=== PATIENT | female | born 1945 | race Caucasian/White ===

== ENCOUNTER 2017-05-01 11:17 | Outpatient (CLI) | payer OTHER, MEDICARE ==
--- NOTE | 2017-05-01 14:20 | PRG ---
DATE OF SERVICE: 05/01/2017 HISTORY: Ms. Diane Lancaster is a very pleasant 72-year-old who presents [facility] for caesar luation of bilateral lower extremity ulceration. The patient has a large ulceration of the right lo wer leg and another larger ulceration of the left lower leg. The patient previously stated that the ulcerations had been present for approximately 2 years. The patient stated that she had undergone bilateral venous ablation in [place] by Dr. Hinojosa. The patient stated that she had undergone ablation twice on the right and twice on the left leg. The patient stated that she had been performing dres sing changes 3 times per day in conjunction with the use of [place] wraps when she initially presente d to the [facility]. Presently, the patient is receiving dressing changes of calcium alginate, AB Ds, Webril, and the 3M Coban 2 layer compression system two times per week with the assistance of [facility]. Today, the patient states that she has been utilizing her lymphedema pump twice a day fo r her lower extremities. PHYSICAL EXAMINATION: VITAL SIGNS: Temperature 97.7, pulse 92, and respirations 18. EXTREMITIES: A large ulceration of the right lower leg is present which measures approximately 10.0 x 18.0 cm. Another larger ulceration of the left lower leg is present which measures approximately 16.0 x 16.5 cm. Granulation tissue is present within the margins of each wound. No purulent drain age is associated with either wound. No cellulitis of the right or left lower legs is appreciated. No maceration of the skin of the periwound of either wound is noted. A dorsalis pedis pulse is pal pable on the right and on the left. Mild to moderate edema of the right and left feet and lower leg s is present on exam today. ASSESSMENT AND PLAN: 1. Chronic venous hypertension with ulcers and inflammation. Dressing changes of calcium alginate, ABDs, Webril, and the 3M Coban two-layer compression system will be continued. These dressing nunn ges are to be performed 3 times per week after cleansing and irrigation with the assistance of [facility]. I will see Ms. Lancaster again in four weeks. 2. Atrial fibrillation. 3. Osteoarthritis. 4. History of peripheral vascular disease.
[2017-05-01] MEDS ORDERED: Sodium Chloride 0.9% 15 ML NEB ONE (17:28)
[2017-05-01] MEDS ORDERED: Lidocaine 4% Topical Sol 50 ML BOT ONE (17:28)
== END 2017-05-01 11:18 | disposition home or self-care (01) ==
LOC: WCC 11:17
PROVIDERS: ATTEND Family Medicine
DX: I87.333 Chronic venous hypertension (idiopathic) with ulcer and inflammation of bilateral lower extremity (principal); L97.929 Non-pressure chronic ulcer of unspecified part of left lower leg with unspecified severity; L97.919 Non-pressure chronic ulcer of unspecified part of right lower leg with unspecified severity; I48.91 Unspecified atrial fibrillation; M19.90 Unspecified osteoarthritis, unspecified site
CPT/HCPCS: 29581; A4218; J2001

== ENCOUNTER 2017-06-27 11:26 | Outpatient (CLI) | payer OTHER, MEDICARE ==
--- NOTE | 2017-06-27 18:39 | PRG ---
DATE OF SERVICE: 06/27/2017 HISTORY: Ms. Diane Lancaster is a very pleasant 72-year-old who presents to the [facility] for eval uation of bilateral lower extremity ulcerations. The patient has a large ulceration of the right low er leg and another large ulceration of the left lower leg. Since the patient was last seen in the [facility], Ms. Lancaster states that she was admitted to a facility in [place], [place] where she receiv ed treatment with IV antibiotics and intraoperative debridement for her lower leg ulcerations. The p atkelsea is now residing at [facility]. The patient states she has been receiving dressing chatterjee es of Hydrofera Blue in conjunction with an Unna boot 2 times per week. PHYSICAL EXAMINATION: VITAL SIGNS: Temperature 97.4, pulse 86, respirations 14, blood pressure 91/56. EXTREMITIES: A large ulceration of the right lower leg is present, which measures approximately 8.0 x 3.0 cm. Another larger ulceration of the left lower leg is present, which measures approximately 1 1.2 x 5.5 cm. Granulation tissue is present within the margins of each wound. No purulent drainage is associated with either wound. No cellulitis of the right or left lower legs is appreciated. No m aceration of the skin of the periwound of either wound is noted. A dorsalis pedis pulse is palpable on the right and on the left. No significant edema of the right or left foot or lower legs is presen t on exam today. ASSESSMENT AND PLAN: 1. Chronic venous hypertension with ulcers and inflammation. Dressing changes of Hydrofera Blue in conjunction with the application of Unna boots will be continued 2 times per week after cleansing and irrigation at [facility]. Hydrofera Blue, Mepilex border, Webril, and 3M Coban 2 layer compre ssion system were applied to each ulceration today. I will see Ms. Lancaster again in 3 weeks. 2. Atrial fibrillation. 3. Osteoarthritis. 4. History of peripheral vascular disease.
== END 2017-06-27 11:27 | disposition home or self-care (01) ==
LOC: WCC 11:26
PROVIDERS: ATTEND Family Medicine
DX: I87.333 Chronic venous hypertension (idiopathic) with ulcer and inflammation of bilateral lower extremity (principal); L97.929 Non-pressure chronic ulcer of unspecified part of left lower leg with unspecified severity; L97.919 Non-pressure chronic ulcer of unspecified part of right lower leg with unspecified severity; I48.91 Unspecified atrial fibrillation; M19.90 Unspecified osteoarthritis, unspecified site; Z86.79 Personal history of other diseases of the circulatory system

== ENCOUNTER 2017-08-12 14:28 | Inpatient (IN) | payer MEDICARE, OTHER ==
[~2017-08-12 14:28] MED LIST: ISOVUE-370 76%-LOCM 1 ML ONE
[2017-08-12 15:10] LABS: #Basophils 0.1 thou/uL (0.0-0.2); #Eosinphils 0.4 thou/uL (0.0-0.7); #Lymphocytes 3.1 thou/uL (1.20-3.40); #Monocytes 1.2 thou/uL (0.11-0.59); #Neutrophils 8.5 thou/uL (1.40-6.50); %Basophils 0.9 % (0.0-1.0); %Lymphocytes 23.5 % (21.0-51.0); %Monocytes 9.1 % (0.0-10.0); %Neutrophils 63.5 % (42.0-75.0); Hemoglobin 11.7 g/dL (12.0-16.0); Mean Corpuscular HGB CONC 33.3 g/dL (32.0-36.0); Mean Corpuscular Hemoglobin 30.5 pg (27.0-31.0); Mean Corpuscular Volume 91.7 fl (81.0-99.0); Mean Platelet Volume 8.4 fL (7.4-10.4); Platelet Count 343 thou/uL (130-400); RBC Distribution Width 16.8 % (11.5-14.5); Red Blood Cell (RBC) Count 3.82 mill/uL (4.20-5.40); White Blood Cell (WBC) Count 13.3 thou/uL (4.8-10.8)
[2017-08-12 15:33] LABS: ALT (SGPT) Less than 7 U/L (8-55); AST (SGOT) 11 U/L (5-34); Albumin 2.8 g/dL (3.4-4.8); Alkaline Phosphatase 95 U/L (40-150); Anion Gap 11 mmol/L (10-20); BUN (Urea Nitrogen) 23 mg/dL (9.8-20.1); Bilirubin, Total 0.5 mg/dL (0.2-1.2); Calc. Creatinine Clearance 0 mL/min (70-130); Calcium 8.9 mg/dL (7.8-10.44); Carbon Dioxide 25 mmol/L (23-31); Chloride 104 mmol/L (98-107); Estimated GFR-MDRD 55; Globulin 3.4 g/dL (2.4-3.5); Glucose 87 mg/dL (80-115); Potassium 4.3 mmol/L (3.5-5.1); Protein, Total 6.2 g/dL (6.0-8.3); Sodium 136 mmol/L (136-145)
[2017-08-12] MEDS ORDERED: Clindamycin/D5W 900 mg/50 ml Premix Bag ONE (17:47)
[2017-08-12] MEDS ORDERED: Enoxaparin Sodium 100 MG/ML SYRINGE ONE (18:29)
--- NOTE | 2017-08-12 19:51 | ULT ---
VENOUS DUPLEX STUDY OF LEFT LOWER EXTREMITY: Technique: Real-time doppler study with spectral analysis and compression performed of the deep veins of the left lower extremity. History: Left lower extremity pain and edema. FINDINGS: The exam was positive. There is echogenic thrombus with noncompressibility involving the common femor al vein and the proximal mid superficial femoral vein on the left. The popliteal vein and popliteal t rifurcation are not identified. These veins were unable to be assessed due to patient limitations. IMPRESSION: Positive study with evidence of deep vein thrombosis in the left lower extremity. Patient's nurse was notified of this report by the technologist. POS: DANIEL
--- NOTE | 2017-08-12 19:54 | RAD ---
LEFT TIBIA AND FIBULA: History: Left leg swelling, pain. FINDINGS: There is a left knee prosthesis. Component appear adequately positioned. There is abnormal mild density involving the tibia and fibula. There is abnormal periosteal reaction involving the mid and distal fibula. I do not confirm an acute fracture although this periosteal reac tion may represent a healing nondisplaced fracture. Other more aggressive processes are not excluded. The diffuse mottled density of both tibia and fibula could represent a process such as multiple myel miguel angel. IMPRESSION: 1. Abnormal mottled density of the tibia and fibula. Diffuse process such as multiple myeloma cannot be excluded radiographically. 2. Abnormal periosteal reaction involving the mid and distal fibula. Healing fracture may be the etio logy for this reaction although this is not confirmed. Recommend clinical correlation. Follow up MRI may be of benefit. POS: DANIEL
[2017-08-12] MEDS ORDERED: Ondansetron ODT 4 MG TAB SL PRN (20:33)
[2017-08-12] MEDS ORDERED: Ondansetron HCl/PF 4 MG/2 ML Vial IVP PRN (20:33)
[2017-08-12 21:32] VITALS: BMI 34.4
[2017-08-12] MEDS ORDERED: Acetaminophen 325 MG TAB PO PRN (22:17)
[2017-08-12] MEDS ORDERED: Loratadine 10 MG TAB PO PRN (22:17)
[2017-08-12] MEDS ORDERED: Guaifenesin DM 100-10/5 ML UDCUP PO PRN (22:17)
[2017-08-12] MEDS: traMADol HCl 50 MG TAB PO PRN (22:59)
[2017-08-12] MEDS: Enoxaparin Sodium 100 MG/ML SYRINGE SC SCH (23:01)
--- NOTE | 2017-08-12 23:08 | CT ---
CT PULMONARY ANGIO CHEST WITH IV CONTRAST: Technique: Multiple axial tomograms were obtained through the chest with IV enhancement following ang io protocol with multiplanar reconstructions and 3D post processing. History: Positive deep vein thrombosis. Shortness of breath. Chest pain. Concern for pulmonary embolu s. FINDINGS: There is evidence of a filling defect in a left lower lobe pulmonary artery peripherally. This is the only filling defect identified. No other evidence of pulmonary embolus. Lung fortune show no infiltrate or effusion. IMPRESSION: 1. Evidence of a small pulmonary embolus in a left lower lobe peripheral pulmonary artery. POS: [facility]
[2017-08-13] MEDS ORDERED: Clindamycin/D5W 900 MG in Premix Bag 1 BAG IVPB SCH (02:00)
--- NOTE | 2017-08-13 02:34 | HP ---
REASON FOR ADMISSION: Left lower extremity deep venous thrombosis and pulmonary embolus. HISTORY OF PRESENT ILLNESS: The patient gives history of having leg swelling which started on Saturday. This progressively got worse. She, in fact, showed her leg to the physical therapist who, in fact, got the wound care nurse to evaluate her. She was ultimately sent here to rule out DVT. The patient has had a venous Doppler done of left lower extremity, which shows proximal DVT of left lower extremity. The patient also mentions that her swelling rapidly worsened all the way up to her thighs now. Patient has chronic history of bilateral lower extremity ulcerations. She has had debridement done at [facility] in 05/2017 and after this, her ulcers are healing per patient. All of this started with a cat bite 3 years back. She was under the care of Dr. Kumar here for almost a year and half prior to going to [facility]. The patient states she is ambulating with a walker, but she cannot mobilize much due to left hip chronic pain, her orthopedic surgeon is not willing to operate until her ulcerations heel on the legs. He also mentions she has had vein stripping done a year and half back by Dr. Riley in [place]. PAST MEDICAL AND SURGICAL HISTORY: History of hypertension, bilateral varicose veins with venous stripping done a year and half back, chronic ulcerations in both lower extremities with prior history of a cat bite 3 years ago, osteoarthritis, chronic atrial fibrillation, obesity, left knee replacement done in 2000, and hysterectomy. CURRENT MEDICATIONS: The patient is on melatonin 5 mg p.o. at bedtime, Ultram p.r.n. for pain, potassium chloride 20 mEq p.o. daily, aspirin 81 mg p.o. daily , spironolactone 12.5 mg p.o. daily, Protonix 40 mg p.o. daily, Xyzal 5 mg p.o. at bedtime, Coreg 6.25 mg twice daily. ALLERGIES: PENICILLIN. PERSONAL HISTORY: Does not abuse alcohol or drugs. No history of smoking. FAMILY HISTORY: Mother in her 80s and has had history of osteoarthritis. Father in a motor vehicle accident at the age of 51 years. CODE STATUS: FULL Power of mixing machine attendant is her nephew, his name is Deja Nava. REVIEW OF SYSTEMS: The following complete review of systems was negative, unless otherwise mentioned in the HPI or below: Constitutional: Weight loss or gain, ability to conduct usual activities. Skin: Rash, itching. Eyes: Double vision, pain. ENT/Mouth: Nose bleeding, neck stiffness, pain, tenderness. Cardiovascular: Palpitations, dyspnea on exertion, orthopnea. Respiratory: Shortness of breath, wheezing, cough, hemoptysis, fever or night sweats. Gastrointestinal: Poor appetite, abdominal pain, heartburn, nausea, vomiting, constipation, or diarrhea. Genitourinary: Urgency, frequency, dysuria, nocturia. Musculoskeletal: Pain, swelling. Neurologic/Psychiatric: Anxiety, depression. Allergy/Immunologic: Skin rash, bleeding tendency. PHYSICAL EXAMINATION: GENERAL: The patient is a 72-year-old female who is currently not in any acute distress. VITAL SIGNS: Blood pressure 104/81, pulse 110 per minute, respiratory rate is 20 per minute, temperature 98.3 degrees Fahrenheit, saturating 95% on room air. NECK: Supple. No elevated JVD. HEENT: Eyes, extraocular muscles intact. Pupils were reacting to light. Oral cavity and mucous membranes were moist. No exudates or congestion. CARDIOVASCULAR: S1, S2 heard. Regular rhythm. RESPIRATORY: Air entry 1+ bilaterally. No rales or rhonchi. ABDOMEN: Soft. Bowel sounds heard. No tenderness, rigidity, or guarding. EXTREMITIES: Left lower extremity has edema and erythema as well. Chronic ulcerations in [place] area of both lower extremities. The ulcerations are mostly on the posterolateral aspect of the both legs. There is good granulation tissue seen. VASCULAR: Peripheral pulses are 1+ bilateral. No ischemic ulcerations or gangrene. CENTRAL NERVOUS SYSTEM: No gross focal deficits seen. Patient is alert, awake , oriented well. PSYCHIATRIC: The patient's mood is euthymic. No hallucinations or delusions. LABORATORY AND X-RAY FINDINGS: Her CT angio chest done showed small pulmonary embolus in the left lower peripheral pulmonary artery. Ultrasound venous Doppler of left lower extremity shows DVT in common femoral, proximal mid superficial femoral vein on the left side. The popliteal vein is not identified on the sonogram. Left tibia and fibula plain x-ray done shows abnormal mottled density of tibia and fibula, was also abnormal periosteal reaction involving the mid and distal fibula seen. BUN 23, creatinine 0.9, glucose 87. CRP 7.9, albumin is 2.8. White count of 13, hemoglobin and hematocrit 11 and 35, platelet count 343 with 63% neutrophils, MCV is 91. CLINICAL IMPRESSION AND PLAN: The patient will be admitted to medical floor for left lower extremity deep vein thrombosis and pulmonary embolism. The patient does not mobilize much due to chronic ulcerations in both lower extremities. She has been residing at [facility] from last 2 weeks or so now. She will be on Lovenox 100 mg subcutaneous twice daily. We will continue her aspirin, Coreg as before. Ultram p.r.n. for pain. We will obtain stool occult blood x3. Patient has had prior colonoscopy done more than 10 years ago per her knowledge that there was nothing abnormal on it. We will obtain PT, OT evaluations for mobilizing patient. Patient likely will be placed on newer anticoagulants once she is more stable. Please note I have seen and examined patient on 08/12/2017. ERIK
[2017-08-13 05:14] LABS: #Basophils 0.1 thou/uL (0.0-0.2); #Eosinphils 0.5 thou/uL (0.0-0.7); #Lymphocytes 2.6 thou/uL (1.20-3.40); #Monocytes 1.2 thou/uL (0.11-0.59); #Neutrophils 6.3 thou/uL (1.40-6.50); %Basophils 0.7 % (0.0-1.0); %Eosinophils 4.8 % (0.0-10.0); %Lymphocytes 24.6 % (21.0-51.0); %Monocytes 10.8 % (0.0-10.0); %Neutrophils 59.1 % (42.0-75.0); Hemoglobin 10.9 g/dL (12.0-16.0); Mean Corpuscular Hemoglobin 30.5 pg (27.0-31.0); Mean Corpuscular Volume 92.4 fl (81.0-99.0); Mean Platelet Volume 8.4 fL (7.4-10.4); Platelet Count 320 thou/uL (130-400); RBC Distribution Width 16.6 % (11.5-14.5); Red Blood Cell (RBC) Count 3.56 mill/uL (4.20-5.40); White Blood Cell (WBC) Count 10.7 thou/uL (4.8-10.8)
[2017-08-13 05:16] LABS: INR-International Normal Ratio 1.1; Prothrombin Time 14.6 SEC (12.0-14.7)
[2017-08-13 05:35] LABS: Anion Gap 10 mmol/L (10-20); BUN (Urea Nitrogen) 21 mg/dL (9.8-20.1); Calc. Creatinine Clearance 101 mL/min (70-130); Calcium 8.5 mg/dL (7.8-10.44); Carbon Dioxide 25 mmol/L (23-31); Chloride 104 mmol/L (98-107); Estimated GFR-MDRD 69; Glucose 89 mg/dL (80-115); Potassium 3.8 mmol/L (3.5-5.1); Sodium 135 mmol/L (136-145)
[2017-08-13] MEDS ORDERED: Vancomycin HCl 1 GM in Premix Bag 1 BAG IVPB SCH (06:00)
[2017-08-13] MEDS ORDERED: Ondansetron ODT 4 MG TAB PO PRN (08:33)
[2017-08-13] MEDS ORDERED: HYDROcodone/Acetaminophen 5/325 mg Tablet PO PRN (08:33)
[2017-08-13] MEDS ORDERED: Milk Of Magnesia 30 ML UDCUP PO PRN (08:33)
[2017-08-13] MEDS ORDERED: Diabetic Tussin 200 MG/10 ML UDCUP PO PRN (08:33)
[2017-08-13] MEDS ORDERED: Loperamide HCl 2 MG CAP PO PRN (08:33)
[2017-08-13] MEDS ORDERED: Mag-Al 1200 mg/1200 mg/30 ML UDCUP PO PRN (08:33)
[2017-08-13] MEDS ORDERED: Eucerin (Mineral Oil/Petrolatum,White) 30 gm Jar TOP PRN (08:33)
[2017-08-13] MEDS ORDERED: Bisacodyl 10 MG SUPP PR PRN (08:33)
[2017-08-13] MEDS ORDERED: Ondansetron HCl/PF 4 MG/2 ML Vial IVP PRN (08:33)
[2017-08-13] MEDS ORDERED: hydrALAZINE 20 MG/ML VIAL SLOW IVP PRN (08:33)
[2017-08-13] MEDS ORDERED: Temazepam 15 MG CAP PO PRN (08:33)
[2017-08-13] MEDS ORDERED: Chloraseptic Spray 180 ml Bottle PO PRN (08:33)
[2017-08-13] MEDS ORDERED: Artificial Tears 18 DROP/0.9 ML EA EYE PRN (08:33)
[2017-08-13] MEDS ORDERED: Sodium Chloride 0.65% Nasal 44 ML BOT EA NARE PRN (08:33)
[2017-08-13] MEDS: traMADol HCl 50 MG TAB PO PRN ×2 (08:49→19:46)
[2017-08-13] MEDS: Docusate 100 MG CAP PO SCH ×2 (08:49→21:00)
[2017-08-13] MEDS: Carvedilol 6.25 MG TAB PO SCH ×2 (08:50→17:18)
[2017-08-13] MEDS: Enoxaparin Sodium 100 MG/ML SYRINGE SC SCH ×2 (08:53→20:01)
[2017-08-13] MEDS ORDERED: Famotidine 20 MG TAB PO SCH (09:00)
[2017-08-13] MEDS: Aspirin 81 mg Enteric Coated Tablet PO SCH (09:06)
[2017-08-13] MEDS: Spironolactone 25 MG TAB PO SCH (09:06)
--- NOTE | 2017-08-13 11:02 | PDOC.PN ---
- Subjective Encounter Start Date: 08/13/17 Encounter Start Time: 07:50 -: old records requested/rev Patient seen and examined. No new complaints. No overnight events - Objective Resuscitation Status: Resuscitation Status FULL:Full Resuscitation MAR Reviewed: Yes Vital Signs & Weight: Vital Signs (12 hours) Temp Pulse Pulse Resp BP BP BP 08/13/17 09:15 106 H 90/59 L 08/13/17 08:50 104/72 08/13/17 08:00 98.4 F 105 H 20 100/69 Pulse Ox 08/13/17 09:15 08/13/17 08:50 08/13/17 08:00 93 L Weight Admit Weight 220 lb Weight 220 lb Result Diagrams: 08/13/17 04:49 08/13/17 04:49 Radiology Reviewed by me: Yes (US leg, CT Angio chest) Phys Exam - Physical Examination Constitutional: NAD HEENT: PERRLA, moist MMs, sclera anicteric Neck: no JVD, supple Respiratory: no wheezing, no rales, no rhonchi Cardiovascular: no significant murmur, no rub, irregular Gastrointestinal: soft, non-tender, no distention, positive bowel sounds chronic wound with dressing, left leg swallon more than right Neurological: non-focal, normal sensation Psychiatric: normal affect, A&O x 3 Skin: no rash, normal turgor Dx/Plan (1) Left femoral vein DVT Code(s): I82.412 - ACUTE EMBOLISM AND THROMBOSIS OF LEFT FEMORAL VEIN Status: Acute Qualifiers: Chronicity: acute Qualified Code(s): I82.412 - Acute embolism and thrombosis of left femoral vein (2) Pulmonary embolism Code(s): I26.99 - OTHER PULMONARY EMBOLISM WITHOUT ACUTE COR PULMONALE Status : Acute Qualifiers: Chronicity: acute (3) Anemia, normocytic normochromic Code(s): D64.9 - ANEMIA, UNSPECIFIED Status: Chronic (4) Atrial fibrillation Code(s): I48.91 - UNSPECIFIED ATRIAL FIBRILLATION Status: Chronic Qualifiers: Atrial fibrillation type: chronic Qualified Code(s): I48.2 - Chronic atrial fibrillation (5) Chronic skin ulcer of lower leg Code(s): L97.909 - NON-PRS CHRONIC ULC UNSP PRT OF UNSP LOW LEG W UNSP SEVERITY Status: Chronic (6) GERD (gastroesophageal reflux disease) Code(s): K21.9 - GASTRO-ESOPHAGEAL REFLUX DISEASE WITHOUT ESOPHAGITIS Status: Chronic (7) Hypertension Code(s): I10 - ESSENTIAL (PRIMARY) HYPERTENSION Status: Chronic (8) Obesity (BMI 30-39.9) Code(s): E66.9 - OBESITY, UNSPECIFIED Status: Chronic - Plan cont current plan of care * continue wound care * continue lovenox * I discussed risk -benefit of warfarin, Elliquis and Xarelto for long term acute care registered nurse treatment * pt decided about Elliquis * medication reviewed as below * symptomatic treatment. Review of Systems - Review of Systems Eyes: negative: Pain, Vision Change, Conjunctivae Inflammation, Eyelid Inflammation, Redness, Other ENT: negative: Ear Pain, Ear Discharge, Nose Pain, Nose Discharge, Nose Congestion, Mouth Pain, Mouth Swelling, Throat Pain, Throat Swelling, Other Respiratory: negative: Cough, Dry, Shortness of Breath, Hemoptysis, SOB with Excertion, Pleuritic Pain, Sputum, Wheezing Cardiovascular: negative: chest pain, palpitations, orthopnea, paroxysmal nocturnal dyspnea, edema, light headedness, other Gastrointestinal: negative: Nausea, Vomiting, Abdominal Pain, Diarrhea, Constipation, Melena, Hematochezia, Other Genitourinary: negative: Dysuria, Frequency, Incontinence, Hematuria, Retention , Other Musculoskeletal: negative: Neck Pain, Shoulder Pain, Arm Pain, Back Pain, Hand Pain, Leg Pain, Foot Pain, Other Skin: negative: Rash, Lesions, Anuel, Bruising, Other - Medications/Allergies Allergies/Adverse Reactions: Allergies Allergy/AdvReac Type Severity Reaction Status Date / Time Penicillins Allergy Verified 08/12/17 20:27 Medications: Current Medications Acetaminophen (Tylenol) 650 mg PO Q4H PRN PRN Reason: Headache/Fever or Pain Hydrocodone Bitart/Acetaminophen ([place] 5/325) 1 tab PO Q4H PRN PRN Reason: Moderate Pain (4-6) Al Hydroxide/Mg Hydroxide (Maalox) 15 ml PO Q4H PRN PRN Reason: Heartburn or Indigestion Artificial Tears (Tears Naturale) 0 drop EA EYE PRN PRN PRN Reason: Dry Eyes Aspirin (Ecotrin) 81 mg PO DAILY ALONZO Last Admin: 08/13/17 09:06 Dose: 81 mg Bisacodyl (Dulcolax) 10 mg MD DAILYPRN PRN PRN Reason: Constipation Carvedilol (Coreg) 6.25 mg PO BID-[facility] Last Admin: 08/13/17 08:50 Dose: 6.25 mg Docusate Sodium (Colace) 100 mg PO BID [facility] Last Admin: 08/13/17 08:49 Dose: 100 mg Enoxaparin Sodium (Lovenox) 100 mg SC 0900,2100 [facility] Last Admin: 08/13/17 08:53 Dose: 100 mg Guaifenesin (Robitussin Sf) 200 mg PO Q4H PRN PRN Reason: Cough Guaifenesin/Dextromethorphan (Robitussin Dm) 15 ml PO Q4H PRN PRN Reason: Cough Hydralazine HCl (Apresoline) 10 mg SLOW IVP Q4H PRN PRN Reason: Systolic BP > 180 Loperamide HCl (Imodium) 2 mg PO PRN PRN PRN Reason: Diarrhea/Loose Stools Loratadine (Claritin) 10 mg PO DAILYPRN PRN PRN Reason: Allergies Magnesium Hydroxide (Milk Of Magnesium) 30 ml PO DAILYPRN PRN PRN Reason: Constipation Mineral Oil/White Petrolatum (Eucerin Cream) 0 gm TOP BIDPRN PRN PRN Reason: Dry Skin Nystatin (Mycostatin Powder) 1 gm TOP BID [facility] Ondansetron HCl (Zofran Odt) 4 mg PO Q6H PRN PRN Reason: Nausea/Vomiting Ondansetron HCl (Zofran) 4 mg IVP Q6H PRN PRN Reason: Nausea/Vomiting Pantoprazole Sodium (Protonix) 40 mg PO DAILY [facility] Last Admin: 08/13/17 09:06 Dose: 40 mg Phenol (Chloraseptic [place] 180 Ml Bot) 0 ml PO PRN PRN PRN Reason: Sore Throat Sodium Chloride ([place] Nasal [place] 0.65%) 0 ml EA NARE QIDPRN PRN PRN Reason: Nasal Congestion Sodium Chloride (Flush - Normal Saline) 10 ml IVF Q12HR [facility] Last Admin: 08/13/17 09:07 Dose: 10 ml Sodium Chloride (Flush - Normal Saline) 10 ml IVF PRN PRN PRN Reason: Saline Flush Spironolactone (Aldactone) 12.5 mg PO DAILY [facility] Last Admin: 08/13/17 09:06 Dose: 12.5 mg Temazepam (Restoril) 15 mg PO HSPRN PRN PRN Reason: Insomnia Terbinafine HCl (Lamisil At 1% Cream) 0 gm TOP DAILY ALONZO Tramadol HCl (Ultram) 50 mg PO Q6H PRN PRN Reason: Pain > 3 Last Admin: 08/13/17 08:49 Dose: 50 mg
[2017-08-13] MEDS: Nystatin Powder 15 GM BOT TOP SCH ×2 (16:19→20:01)
[2017-08-13] MEDS ORDERED: Warfarin Sodium 5 MG TAB PO SCH (17:00)
[2017-08-13] MEDS ORDERED: diphenhydrAMINE 25 MG CAP PO PRN (19:12)
[2017-08-14 04:31] LABS: Hemoglobin 11.3 g/dL (12.0-16.0); Platelet Count 303 thou/uL (130-400)
[2017-08-14 04:36] LABS: INR-International Normal Ratio 1.2; Prothrombin Time 15.4 SEC (12.0-14.7)
[2017-08-14] MEDS: Nystatin Powder 15 GM BOT TOP SCH ×2 (08:32→21:39)
[2017-08-14] MEDS: Docusate 100 MG CAP PO SCH ×2 (08:33→21:38)
[2017-08-14] MEDS: Aspirin 81 mg Enteric Coated Tablet PO SCH (08:33)
[2017-08-14] MEDS: Enoxaparin Sodium 100 MG/ML SYRINGE SC SCH ×2 (08:35→21:39)
[2017-08-14] MEDS: Carvedilol 6.25 MG TAB PO SCH ×2 (10:16→18:10)
[2017-08-14] MEDS: Spironolactone 25 MG TAB PO SCH (10:16)
--- NOTE | 2017-08-14 10:59 | PDOC.PN ---
- Subjective Encounter Start Date: 08/14/17 Encounter Start Time: 08:10 Patient seen and examined. No new complaints. No overnight events - Objective Resuscitation Status: Resuscitation Status FULL:Full Resuscitation MAR Reviewed: Yes Vital Signs & Weight: Vital Signs (12 hours) Temp Pulse Resp BP BP Pulse Ox 08/14/17 10:16 91/67 08/14/17 10:08 08/14/17 08:38 98.2 F 103 H 16 96/68 97 08/14/17 08:00 98.2 F 103 H 16 97 Weight Admit Weight 220 lb Weight 220 lb Result Diagrams: 08/14/17 03:15 08/14/17 03:15 Phys Exam - Physical Examination Constitutional: NAD HEENT: PERRLA, moist MMs, sclera anicteric Neck: no JVD, supple Respiratory: no wheezing, no rales, no rhonchi Cardiovascular: RRR, no significant murmur, no rub Gastrointestinal: soft, non-tender, no distention, positive bowel sounds Musculoskeletal: no edema, pulses present wound with dressing Neurological: non-focal, normal sensation Lymphatic: no nodes Psychiatric: normal affect, A&O x 3 Skin: no rash, normal turgor Dx/Plan (1) Left femoral vein DVT Code(s): I82.412 - ACUTE EMBOLISM AND THROMBOSIS OF LEFT FEMORAL VEIN Status: Acute Qualifiers: Chronicity: acute Qualified Code(s): I82.412 - Acute embolism and thrombosis of left femoral vein (2) Pulmonary embolism Code(s): I26.99 - OTHER PULMONARY EMBOLISM WITHOUT ACUTE COR PULMONALE Status : Acute Qualifiers: Chronicity: acute (3) Anemia, normocytic normochromic Code(s): D64.9 - ANEMIA, UNSPECIFIED Status: Chronic (4) Atrial fibrillation Code(s): I48.91 - UNSPECIFIED ATRIAL FIBRILLATION Status: Chronic Qualifiers: Atrial fibrillation type: chronic Qualified Code(s): I48.2 - Chronic atrial fibrillation (5) Chronic skin ulcer of lower leg Code(s): L97.909 - NON-PRS CHRONIC ULC UNSP PRT OF UNSP LOW LEG W UNSP SEVERITY Status: Chronic (6) GERD (gastroesophageal reflux disease) Code(s): K21.9 - GASTRO-ESOPHAGEAL REFLUX DISEASE WITHOUT ESOPHAGITIS Status: Chronic (7) Hypertension Code(s): I10 - ESSENTIAL (PRIMARY) HYPERTENSION Status: Chronic (8) Obesity (BMI 30-39.9) Code(s): E66.9 - OBESITY, UNSPECIFIED Status: Chronic - Plan cont current plan of care * continue lovenox today and tomorrow * will consider discharge to assisted living tomorrow on oral elliquis * medication reviewed as below * symptomatic treatment. Review of Systems - Review of Systems ENT: negative: Ear Pain, Ear Discharge, Nose Pain, Nose Discharge, Nose Congestion, Mouth Pain, Mouth Swelling, Throat Pain, Throat Swelling, Other Respiratory: negative: Cough, Dry, Shortness of Breath, Hemoptysis, SOB with Excertion, Pleuritic Pain, Sputum, Wheezing Cardiovascular: negative: chest pain, palpitations, orthopnea, paroxysmal nocturnal dyspnea, edema, light headedness, other Gastrointestinal: negative: Nausea, Vomiting, Abdominal Pain, Diarrhea, Constipation, Melena, Hematochezia, Other Genitourinary: negative: Dysuria, Frequency, Incontinence, Hematuria, Retention , Other Musculoskeletal: negative: Neck Pain, Shoulder Pain, Arm Pain, Back Pain, Hand Pain, Leg Pain, Foot Pain, Other Skin: negative: Rash, Lesions, Anuel, Bruising, Other - Medications/Allergies Allergies/Adverse Reactions: Allergies Allergy/AdvReac Type Severity Reaction Status Date / Time Penicillins Allergy Verified 08/12/17 20:27 Medications: Current Medications Acetaminophen (Tylenol) 650 mg PO Q4H PRN PRN Reason: Headache/Fever or Pain Hydrocodone Bitart/Acetaminophen ([place] 5/325) 1 tab PO Q4H PRN PRN Reason: Moderate Pain (4-6) Al Hydroxide/Mg Hydroxide (Maalox) 15 ml PO Q4H PRN PRN Reason: Heartburn or Indigestion Artificial Tears (Tears Naturale) 0 drop EA EYE PRN PRN PRN Reason: Dry Eyes Aspirin (Ecotrin) 81 mg PO DAILY [facility] Last Admin: 08/14/17 08:33 Dose: 81 mg Bisacodyl (Dulcolax) 10 mg [place] DAILYPRN PRN PRN Reason: Constipation Carvedilol (Coreg) 6.25 mg PO BID[facility] Last Admin: 08/14/17 10:16 Dose: Not Given Diphenhydramine HCl (Benadryl) 25 mg PO Q6H PRN PRN Reason: Itching Last Admin: 08/13/17 19:40 Dose: 25 mg Docusate Sodium (Colace) 100 mg PO BID [facility] Last Admin: 08/14/17 08:33 Dose: 100 mg Enoxaparin Sodium (Lovenox) 100 mg SC 0900,2100 [facility] Last Admin: 08/14/17 08:35 Dose: 100 mg Guaifenesin (Robitussin Sf) 200 mg PO Q4H PRN PRN Reason: Cough Guaifenesin/Dextromethorphan (Robitussin Dm) 15 ml PO Q4H PRN PRN Reason: Cough Hydralazine HCl (Apresoline) 10 mg SLOW IVP Q4H PRN PRN Reason: Systolic BP > 180 Loperamide HCl (Imodium) 2 mg PO PRN PRN PRN Reason: Diarrhea/Loose Stools Loratadine (Claritin) 10 mg PO DAILYPRN PRN PRN Reason: Allergies Magnesium Hydroxide (Milk Of Magnesium) 30 ml PO DAILYPRN PRN PRN Reason: Constipation Mineral Oil/White Petrolatum (Eucerin Cream) 0 gm TOP BIDPRN PRN PRN Reason: Dry Skin Nystatin (Mycostatin Powder) 1 gm TOP BID [facility] Last Admin: 08/14/17 08:32 Dose: 1 applic Ondansetron HCl (Zofran Odt) 4 mg PO Q6H PRN PRN Reason: Nausea/Vomiting Last Admin: 08/14/17 10:19 Dose: 4 mg Ondansetron HCl (Zofran) 4 mg IVP Q6H PRN PRN Reason: Nausea/Vomiting Pantoprazole Sodium (Protonix) 40 mg PO DAILY [facility] Last Admin: 08/14/17 08:33 Dose: 40 mg Phenol (Chloraseptic [place] 180 Ml Bot) 0 ml PO PRN PRN PRN Reason: Sore Throat Sodium Chloride (Garibaldi Nasal [place] 0.65%) 0 ml EA NARE QIDPRN PRN PRN Reason: Nasal Congestion Sodium Chloride (Flush - Normal Saline) 10 ml IVF Q12HR [facility] Last Admin: 08/14/17 08:35 Dose: 10 ml Sodium Chloride (Flush - Normal Saline) 10 ml IVF PRN PRN PRN Reason: Saline Flush Spironolactone (Aldactone) 12.5 mg PO DAILY [facility] Last Admin: 08/14/17 10:16 Dose: Not Given Temazepam (Restoril) 15 mg PO HSPRN PRN PRN Reason: Insomnia Terbinafine HCl (Lamisil At 1% Cream) 0 gm TOP DAILY [facility] Last Admin: 08/14/17 08:32 Dose: 1 applic Tramadol HCl (Ultram) 50 mg PO Q6H PRN PRN Reason: Pain > 3 Last Admin: 08/13/17 19:46 Dose: 50 mg
[2017-08-15 05:19] LABS: INR-International Normal Ratio 1.1; Prothrombin Time 14.7 SEC (12.0-14.7)
[2017-08-15] MEDS: Enoxaparin Sodium 100 MG/ML SYRINGE SC SCH (08:41)
[2017-08-15] MEDS: Docusate 100 MG CAP PO SCH (08:42)
[2017-08-15] MEDS: Aspirin 81 mg Enteric Coated Tablet PO SCH (08:42)
[2017-08-15] MEDS: Carvedilol 6.25 MG TAB PO SCH (08:43)
[2017-08-15] MEDS: Nystatin Powder 15 GM BOT TOP SCH (08:44)
[2017-08-15] MEDS: Spironolactone 25 MG TAB PO SCH (08:44)
--- NOTE | 2017-08-15 10:09 | DIS ---
PRIMARY CARE PHYSICIAN: Dr. Bharath Cornejo DATE OF ADMISSION: 08/12/2017 DATE OF DISCHARGE: 08/15/2017 DISCHARGE DISPOSITION: Assisted living facility. PRIMARY DISCHARGE DIAGNOSES: 1. Left femoral deep venous thrombosis. 2. Pulmonary embolism. 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 PRIMARY PROCEDURE/OPERATION: None. RADIOLOGICAL INVESTIGATION: CT angiography showed a small pulmonary embolism in the left lower lobe. Ultrasound of lower extremity positive for deep vein thrombosis in left lower extremity. Tibia, fi bula x-ray was unremarkable. SIGNIFICANT LABS: WBC 10.7, hemoglobin 11.3, platelets 303. INR 1.1, sodium 135, potassium 3.8, BUN 21, creatinine 0.82, calcium 8.5. LFTs normal. CRP 7.99. Blood culture negative. DISCHARGE MEDICATIONS: Eliquis 10 mg p.o. b.i.d. for a total of 5 more days and then 5 mg p.o. b.i.d ., Tylenol 650 mg p.o. q.4h. p.r.n., aspirin 81 mg p.o. daily, Coreg 6.25 mg p.o. b.i.d., levocetiriz ine 5 mg p.o. at bedtime, Imodium 2 mg p.o. p.r.n. as directed, melatonin 5 mg p.o. at bedtime p.r.n. , Zofran 4 mg q.6h. p.r.n., Protonix 40 mg p.o. daily, potassium chloride 20 mEq p.o. daily, [place] e 12.5 mg p.o. daily, Lamisil topical application as directed, tramadol 50 mg q.6 hourly p.r.n. CONTRAINDICATIONS: None. CODE STATUS: FULL CODE. INPATIENT CONSULTANTS: None. ALLERGIES: PENICILLIN. DISCHARGE PLAN: Post hospital, the patient will follow up with primary care physician, Dr. Bharath garrido in 1 week. HOSPITAL COURSE: A 72-year-old female who was admitted by Dr. Leon, please see his H&P for fu rther details. This patient was having lower extremity swelling, more on the left side. [facility], ultrasound was done which was positive for deep vein thrombosis. Subsequently the patien t also had a CT angio which showed a small pulmonary embolism. This patient has chronic ulceration o quin lower extremity and she is getting wound care as an outpatient basis. This patient was admitted for DVT and PE. She was hemodynamically stable and that is why she was admitted to medical floor. W mynor in hospital, we treated her with Lovenox for 3 days. The patient decided to go with long-term a nticoagulation with Eliquis. While in hospital we had a lengthy discussion with her about the Loveno x, warfarin, Eliquis and Xarelto and she chose Eliquis therapy. We are giving her 5 more days of Krystal maria elena therapy and then she will continue low dose of Eliquis therapy. She also has underlying atrial fibrillation history and that is why she will need almost lifelong anticoagulation therapy. The patient is overall doing very well while in hospital. Today I saw this patient at bedside and ex amined and review of systems reviewed with her and negative. VITAL SIGNS: Currently, temperature 97.7, pulse 86, respiratory rate 22, saturation 97% on room air, blood pressure 96/64. Weight 220 pounds. GENERAL: The patient is currently alert, awake, no acute distress. HEAD: Normocephalic, atraumatic. EYES: Pupils round, reactive to light. Extraocular muscles intact. ENT: Oropharynx within normal limits. Moist mucous membranes. No oral lesions. NECK: Supple, no JVD. LUNGS: Lungs clear to auscultation without any rhonchi or rales. CARDIAC: S1, S2 regular without any murmur. ABDOMEN: Soft and benign. EXTREMITIES: No edema. Wound covered with a dressing. NEUROLOGIC: Nonfocal examination. The patient is medically stable for discharge today.
[2017-08-15 12:34] VITALS: BP 104/74; TEMP 98.1
[2017-08-15] MEDS: traMADol HCl 50 MG TAB PO PRN (12:52)
== END 2017-08-15 15:56 | disposition home health service (06) | DRG 299 ==
LOC: ERS 14:28 → T4-B 17:32
PROVIDERS: ADMIT Family Medicine; ATTEND Family Medicine
DX: I82.412 Acute embolism and thrombosis of left femoral vein (principal); I26.99 Other pulmonary embolism without acute cor pulmonale; L03.116 Cellulitis of left lower limb; L97.929 Non-pressure chronic ulcer of unspecified part of left lower leg with unspecified severity; L97.919 Non-pressure chronic ulcer of unspecified part of right lower leg with unspecified severity; D64.9 Anemia, unspecified; I48.2 Chronic atrial fibrillation; K21.9 Gastro-esophageal reflux disease without esophagitis; I10 Essential (primary) hypertension; E66.9 Obesity, unspecified; Z79.01 Long term (current) use of anticoagulants; Z68.34 Body mass index [BMI] 34.0-34.9, adult
CPT/HCPCS: 36415; 71275; 80048; 80053; 82565; 85014; 85018; 85025; 85610; 85652; 86140; 87040; 96361; 96365; 96368; 96372; 96375; A4216; G8978-GP-CK; G8979-GP-CJ; G8987-GO-CI; G8988-GO-CI; G8989-GO-CI; J1650; J2270; J3370; J3490; Q0162